=== PATIENT | female | born 1950 | race Caucasian/White ===

== ENCOUNTER 2016-11-18 08:22 | Outpatient (CLI) | payer MEDICARE ==
[~2016-11-18] VITALS: Ht 154.9 cm; Wt 71.4 kg
--- NOTE | ~2016-11-18 | HEMODYNAMI ---
PATIENT:BILL ESPINO MEDICAL RECORD: [id number] : 48 LOCATION:[facility] ADMISSION DATE: 11/18/16 Generatedon:11/18/201610:42 Patient name: BILL ESPINO Patient #: [id number] SSN: : 1950 Date of study: 11/18/2016 Page: Of Hemodynamic Procedure Report Patient Data Patient Demographics Procedure consent was obtained First Name: BILL Gender: Female Last Name: SRINIVAS : 1950 [facility] Initial: K Age: 65 year(s) Patient #: [id number] Race: Additional ID: [id number] Contact details Address: [facility] [address] State: [place] City: [place] Zip code: [address] Past Medical History Allergies Allergen Reaction Date Comments Reported Other allergy 05/03/2015 Hydrocodone, Reglan Other allergy 11/18/2016 HYDROCODONE, METOCLOPRAMIDE Admission Admission Data Admission Date: 11/18/2016 Admission Time: 8:22 Lab Results Lab Result Date: 11/18/2016 Lab Result Time: 0:00 Biochemistry Name Units Result Min Max BUN mg/dl 15 --(--*-)-- 7 18 Creatinine mg/dl 0.9 --(-*--)-- 0.6 1.3 CBC Name Units Result Min Max Hemoglobin g/dl 13.6 --(*---)-- 13.5 17.5 Procedure Procedure Types Cath Procedure Diagnostic Procedure LHC LHC w/Coronaries Miscellaneous Procedures Moderate Sedation up to 15 minutes Peripheral Cath Diagnostic Procedure Cath Peripheral Four Vessel Arteriogram Procedure Description Procedure Date Procedure Date: 11/18/2016 Procedure Start Time: 10:29 Procedure End Time: 10:37 Procedure Staff Name Function Augustus Del Real MD Performing Physician Binu Marcos RT Scrub Enedelia Faulkner RN Nurse Wayne Choe RT Monitor Procedure Data Cath Procedure Fluoroscopy Diagnostic fluoroscopy Total fluoroscopy Time: 1.9 time: 1.9 min min Diagnostic fluoroscopy Total fluoroscopy dose: dose: 119.04 mGy 119.04 mGy Contrast Material Contrast Material Type Amount (ml) Isovue 300 92 Entry Location Entry Primary Successful Side Size Upsize Upsize Entry Closure Succes sful Closure Location (Fr) 1 (Fr) 2 (Fr) Remarks Device Remarks Femoral Right 5 Fr Exoseal artery Diagnostic catheters Device Type Used For End Catheter Placement Cordis 5Fr Pigtail LV Angiography Catheter (MP) Cordis 5Fr JL 4.0 Left Coronary Catheter (MP) Angiography Cordis 5Fr 3DRC Catheter Right Coronary (MP) Angiography Procedure Complications No complications Procedure Medications Medication Administration Route Dosage Oxygen NC 2 l/min Heparin Flush Bag added to field 2 bags (1000units/500ml NS) Lidocaine 2% added to field 20 Versed I.V. 1 mg Fentanyl I.V. 50 mcg Versed I.V. 1 mg Fentanyl I.V. 50 mcg Versed I.V. 1 mg Fentanyl I.V. 50 mcg Hemodynamics Rest HGB: 13.6 (g/dl) Heart Rate: 63 (bpm) Snapshots Pre Cath Intra NCS Post Cath Vital Signs Time Heart Resp SPO2 NIBP (mmHg) Rhythm Pain Sedation Rate (ipm) (%) Status Level (bpm) 10:12:26 63 22 99 174/76(137) NSR 0 (11) 10(A) , No pain 10:16:48 68 19 99 142/80(123) NSR 0 (11) 10(A) , No pain 10:21:02 66 20 100 117/66(89) NSR 0 (11) 10(A) , No pain 10:25:13 57 16 99 90/50(72) NSR 0 (11) 10(A) , No pain 10:29:23 57 16 99 95/54(73) NSR 0 (11) 9(A) , No pain 10:33:35 60 16 100 95/55(77) NSR 0 (11) 9(A) , No pain 10:37:45 63 16 98 98/57(74) NSR 0 (11) 9(A) , No pain Medications Time Medication Route Dose Verified Delivered Reason Notes Effec tiveness by by 10:11:23 Oxygen NC 2 Augustus Enedelia Per l/min Nasima Faulkner RN physician 10:11:32 Heparin Flush added 2 Augustus Coffman used for Bag to bags Nasima Del Real MD procedure (1000units/500ml field NS) 10:11:40 Lidocaine 2% added 20ml Augustus Coffman used for to vial Nasima Del Real MD procedure field 10:22:00 Versed I.V. 1 mg Augustus Enedelia for Nasima Faulkner RN sedation 10:22:21 Fentanyl I.V. 50 Augustus Enedelia for mcg Nasima Faulkner RN sedation 10:24:20 Versed I.V. 1 mg Augustus Enedelia for Nasima Faulkner RN sedation 10:24:45 Fentanyl I.V. 50 Augustus Enedelia for mcg Nasima Faulkner RN sedation 10:26:37 Versed I.V. 1 mg Augustus Enedelia for Nasima Faulkner RN sedation 10:26:42 Fentanyl I.V. 50 Augustus Enedelia for mcg Nasima Faulkner RN sedation Procedure Log Time Note 9:24:52 ACC Patient presents with Stable Angina CCS Anginal Class 2--Slight limitation of ordinary activity. 9:24:56 Diagnostic Cath status Elective 9:55:23 Binu FREEMAN(R) sent for patient. Start room use. 10:06:33 Time tracking: Regular hours 10:06:36 Plan of Care:Hemodynamics will remain stable., Cardiac rhythm will remain stable., Comfort level will be maintained., Respiratory function will remain adequate., Patient/ family verbilizes understanding of procedure., Procedure tolerated without complication., Recovers from procedure without complications.. 10:06:40 Patient received from Pre/Post Procedure Room to CCL 3 Alert and oriented. Tansferred to table in Supine position. 10:06:42 Warm blankets applied, and adilia hugger turned on for patient comfort. 10:06:42 Correct patient and procedure confirmed by team. 10:06:43 ECG and BP/O2 sat monitors applied to patient. 10:06:45 Signed procedure consent form obtained from patient. 10:11:01 Vital chart was started 10:11:23 Oxygen 2 l/min NC was administered by Enedelia Faulkner RN; Per physician; 10:11:32 Heparin Flush Bag (1000units/500ml NS) 2 bags added to field was administered by Augustus Del Real MD; used for procedure; 10:11:40 Lidocaine 2% 20ml vial added to field was administered by Augustus Del Real MD; used for procedure; 10:19:48 Baseline sample Acquired. 10:19:50 Rhythm: sinus rhythm 10::51 Full Disclosure recording started 10:20:03 H&P Date Dictated: 11/16/2016 Within 30 days and on chart., H&P Addendum completed by physician on day of procedure. (MUST COMPLETE FOR ALL OUTPATIENTS). 10:20:03 Pre-procedure instructions explained to patient. 10:20:04 Pre-op teaching completed and patient verbalized understanding. 10:20:05 Family in patients room. 10:20:06 Patient NPO since Midnight. 10:20:36 Patient allergic to Other allergyHYDROCODONE, METOCLOPRAMIDE 10:20:38 Is the patient allergic to Iodine/contrast media? No. 10:20:42 Is patient on blood thinner?Yes 10:20:45 ACC The patient was administered the following blood thiners within the last 24 hours: ACCPlavix 10:20:47 Patient diabetic? No. 10:20:47 ----Pre-sedation anethsthesia assessment.---- 10:20:49 Previous problem with sedation/anesthesia? No ? 10:20:50 Snore? Yes 10:20:51 Sleep apnea? Yes 10:20:53 Deviated septum? No 10:20:54 Opens mouth fully? Yes 10:20:55 Sticks out tongue? Yes 10:20:59 Airway obstruction? Yes COPD 10:21:03 Dentures? Yes OUT 10:21:06 Pre procedure: right dorsailis pedis pulse 1+ Palpable, but thready & weak; easily obliterated 10:21:16 Patient pain scale 0/10 ?. 10:21:21 IV patent on arrival in left antecubital with 0.9% NaCl at 10ml/hr. 10:21:41 Lab Result : BUN 15 mg/dl 10:21:41 Lab Result : Creatinine 0.9 mg/dl 10:21:41 Lab Result : Hemoglobin 13.6 g/dl 10:21:44 Lab results completed and on chart. 10:21:46 Right groin area was prepped with chlora-prep and draped in sterile fashion 10:21:47 Alarms reviewed by Kimmie Abdi 10::47 Sharps counted by scrub and verified by R.N. 10::48 --------ALL STOP TIME OUT------ 10::48 Final Timeout: patient, procedure, and site verified with staff and physician. All members of the team are in agreement. 10:21:50 Right groin site verified by team. 10::53 Physical assessment completed. ASA score P 2 - A patient with mild systemic disease as per Augustus Del Real MD. 10::57 Sedation plan: IV Moderate Sedation Versed, Fentanyl 10:22:00 Versed 1 mg I.V. was administered by Enedelia Faulkner RN; for sedation; 10::21 Fentanyl 50 mcg I.V. was administered by Enedelia Fualkner RN; for sedation; ::57 Use device set Femoral Dx 10:22:58 Acist Syringe opened to sterile field. 10:22:59 Bag Decanter opened to sterile field. 10:22:59 Medline Cath Pack opened to sterile field. 10:22:59 Terumo 5Fr Moore Sheath opened to sterile field. 10:23:00 St Gunner 260cm J .035 wire opened to sterile field. 10:23:01 Acist Hand Control opened to sterile field. 10:23:01 Acist Manifold opened to sterile field. 10:23:02 Diagnostic Infinity 5Fr Multipack catheter opened to sterile field. 10:23:02 Tegaderm 4 x 4 opened to sterile field. 10:23:27 Procedure type changed to Cath procedure, Diagnostic procedure, LHC, LHC w/Coronaries, Miscellaneous Procedures, Moderate Sedation up to 15 minutes, Peripheral Cath Diagnostic Procedure, Cath Peripheral, Four Vessel Arteriogram 10:24:20 Versed 1 mg I.V. was administered by Enedelia Faulkner RN; for sedation; 10:24:45 Fentanyl 50 mcg I.V. was administered by Enedelia Faulkner RN; for sedation; 10:26:37 Versed 1 mg I.V. was administered by Enedelia Faulkner RN; for sedation; 10:26:38 Zero performed for pressure channel P1 10::42 Fentanyl 50 mcg I.V. was administered by Enedelia Faulkner RN; for sedation; 10:29:13 Procedure started. 10:29:25 Local anesthetic to right femoral artery with Lidocaine 2% by Augustus Del Real MD.INITIAL ACCESS ONLY 10:29:32 A 5 Fr sheath was inserted into the Right Femoral artery 10:29:38 A Cordis 5Fr Pigtail Catheter (MP) was advanced over the wire and used for LV Angiography. 10:30:33 LV angiography performed. 10:30:35 LV gram done using ROMERO 10:31:06 Injector settings: Ml/sec: 10, Volume: 20, 10:31:12 EF : 55 % 10:31:14 Catheter removed. 10:31:20 A Cordis 5Fr JL 4.0 Catheter (MP) was advanced over the wire and used for Left Coronary Angiography. 10:32:23 LCA angiography performed. 10:32:23 Catheter removed. 10:32:29 A Cordis 5Fr 3DRC Catheter (MP) was advanced over the wire and used for Right Coronary Angiography. 10:32:32 RCA angiography performed. 10:33:17 Left carotid angiography performed. 10:33:18 Left subclavian angiography performed 10:33:19 Right carotid angiography performed. 10:33:20 Right subclavian angiography performed 10:34:59 Catheter removed. 10:35:04 Contrast amount:Isovue 300 92ml. 10:35:15 Sheath removed intact; hemostasis achieved with Exoseal to the Right Femoral artery. 10:35:16 Procedure ended.(Physican Out) 10:35:28 Fluoroscopy time 01.90 minutes. 10:35:52 Fluoroscopy dose: 119.04 mGy 10:35:52 Flurop Dose total: 119.04 10:35:54 Sharps counted by scrub and verified by R.N. 10:35:54 Insertion/operative site no bleeding no hematoma. 10:35:57 Post-op/insertion site Right Femoral artery dressed using a 4 x 4 and Tegaderm. 10:35:59 Post right femoral artery:stable 10:36:00 Post Procedure Pulses reassessed and unchanged 10:36:08 Post procedure: right dorsailis pedis pulse 1+ Palpable, but thready & weak; easily obliterated. 10:36:10 Post procedure rhythm: sinus rhythm 10:36:12 Post procedure instruction explained to patient.Patient verbalizes understanding. 10:36:32 Procedure and supply charges have been captured, reviewed, submitted and are correct. 10:36:44 Cordis 5Fr Exoseal opened to sterile field. 10:36:59 Procedure Complication : No complications 10:37:01 See physician's report for complete and final results. 10:37:02 Report given to Pre/Post Procedure Room. 10:37:04 Vital chart was stopped 10:37:07 Patient transfered to Pre/Post Procedure Room with Stretcher. 10:37:09 Procedure ended. 10:37:09 Full Disclosure recording stopped 10:37:11 End room use (Document Last) Device Usage Item Name Manufacture Quantity Catalog Hospital Part Current Minimal Lo t# / Number Charge Number Stock Stock Serial# Code Acist Acist 1 [id number] 086068 817630 [id number] 20 Syringe Medical [employer] Inc Bag Microtek 1 2002S 733324 35029 968115 5 Decanter Medical Inc. Medline Cardinal 1 [id number] 457991 55028 782936 5 Cath Pack Health Terumo 5Fr Terumo 1 [id number] 298999 388745 124556 [address] Gunner 1 738689 202269 526574 581906 30 260cm J .035 wire Acist Hand Acist 1 81935 167983 391653 652819 5 Control Medical Systems Inc Acist Acist 1 48546 478337 515805 239745 5 Manifold Medical Systems Inc Diagnostic Cardinal 1 [id number] 413601 73075 875347 30 Infinity Health 5Fr Multipack catheter Tegaderm 4 3M 1 1626W 341184 580060 169206 5 x 4 Cordis 5Fr Cardinal 1 522174 5 Pigtail Health Catheter (MP) Cordis 5Fr Cardinal 1 371450 5 JL 4.0 Health Catheter (MP) Cordis 5Fr Cardinal 1 991577 5 3DRC Health Catheter (MP) Cordis 5Fr Cardinal 1 EX500 306552 144405 742088 10 Exoseal Health Signature Audit [place] Stage Time Signature Unsigned Intra-Procedure 11/18/2016 Wayne Choe 10:42:04 AM RT(R) Signatures Monitor : Wayne Choe RT Signature : Date : Time : [facility] [address] [place] [address]
[~2016-11-18 08:22] MED LIST: AMBIEN10 MG PO; ASPIRIN 81 MG E81 MG PO; CELEXA20 MG PO; NEURONTIN 300300 MG PO; NIASPAN500 MG PO; NITROSTAT0.4 MG SL; PLAVIX75 MG PO; PRAVACHOL20 MG PO; TOPROL XL25 MG PO; [UNRECOGNIZED DRUG - REMARK] IH
[2016-11-18 08:54] VITALS: BP 165/67; Ht 154.9 cm; Wt 71.4 kg
[2016-11-18 09:28] LABS: BASOPHILS 0.3 % (0.0-2.0); EOSINOPHILS 3.4 % (0-7); HEMATOCRIT 40.9 % (36.0-48.0); HEMOGLOBIN 13.6 g/dL (12-16); IMMATURE GRANULOCYTES 0.3 % (0-5); MCH 30.7 pg (26.0-34.0); MCHC 33.3 g/dL (31.0-37.0); MCV 92.3 fL (80.0-100.0); MEAN PLATELET VOLUME 9.5 fL (7.4-10.4); MONOCYTES 12.4 % (2-11); NEUTROPHILS 58.6 % (40-80); PLATELET COUNT 157 10x3/uL (130-400); RBC 4.43 10x6/uL (4.00-5.40); RDW 13.6 % (11.5-14.5); WBC 5.9 10x3/uL (4.8-10.8)
[2016-11-18 09:43] LABS: ANION GAP 14.3 mmol/L (8-16); CALCIUM 8.5 mg/dL (8.5-10.1); CARBON DIOXIDE 23.9 mmol/L (21.0-32.0); CREATININE - SERUM 0.9 mg/dL (0.6-1.3); POTASSIUM - SERUM 4.2 mmol/L (3.5-5.1)
--- NOTE | 2016-11-18 11:58 | NUR ---
1115-RIGHT GROIN CDI, NO HEMATOMA OR BLEEDING, SOFT TO TOUCH 1145-NO CHANGES IN RIGHT GROIN, RESTING WITH FAMILY AT SIDE
--- NOTE | 2016-11-27 10:19 | OP ---
PATIENT NAME: BILL ESPINO MEDICAL RECORD: [id number] :48 LOCATION:D.CAT ADMISSION DATE: SURGEON: MATT STEWART MD DATE OF OPERATION: 11/18/2016 PROCEDURES: 1. Left heart catheterization. 2. Selective coronary angiography. 3. Left ventriculogram. PROCEDURE IN DETAIL: After informed consent was obtained and after detailed explanation of risks, benefits as well as alternative therapies, the patient elected to proceed with angiogram and heart catheterization. The right femoral area was prepped and draped in normal sterile fashion. The right femoral artery was cannulated via modified Seldinger technique with placement of 5-Dominican sheath. All catheters exchanged through this sheath. FINDINGS: The left ventriculogram was performed in the standard 30-degree ROMERO view, reveals good cardiac wall motion throughout all segments. Overall ejection fraction estimated 60%. SELECTIVE CORONARY ANGIOGRAPHY: 1. Left main showed no significant angiographic disease. 2. Left anterior descending has a previously placed stent with no significant restenosis. No disease elsewise throughout the LAD or its branches. 3. Left circumflex shows moderate irregularities, but no flow-limiting stenosis. 4. Right coronary has previously placed stents with no significant restenosis. No disease elsewise throughout the RCA or its branches. OVERALL IMPRESSION: Wide patency of all the previously placed stents, no new disease elsewise, preserved left ventricular function. Continue medical management of the coronary artery disease and cardiac risk factors. TRANSINT:[id number] Voice Confirmation ID: [id number] DOCUMENT ID: [id number] MATT STEWART MD at 1019 CC: [id number] DICTATION DATE: 11/18/16 1043 MACHINE MOLDER: 11/18/16 1128 DEP CLI 11/18/16 [place] [id number]
--- NOTE | 2016-11-27 10:19 | OP ---
PATIENT NAME: BILL ESPINO MEDICAL RECORD: [id number] :48 LOCATION:D.CAT ADMISSION DATE: SURGEON: MATT STEWART MD DATE OF OPERATION: 11/18/2016 PROCEDURES: Four-vessel carotid and vertebral angiography. INDICATIONS: Carotid vascular disease, left arm numbness and weakness. PROCEDURE IN DETAIL: After informed consent was obtained and after a detailed explanation of the risks, benefits as well as alternative therapies, the patient elected to proceed with angiogram. The right femoral area had a preexisting sheath from coronary angiography. All catheters exchanged through this sheath. FINDINGS: There was subselection of each subclavian as well as the left carotid. RIGHT SIDE: The common internal and external carotids have mild plaquing, none greater than 20%, no flow-limiting stenosis. Vertebral arteries are devoid of disease. LEFT SYSTEM: The common internal and external carotids have mild plaquing, none greater than 20%, no significant stenosis. Subclavian has a previously placed stent. The stent is widely patent. The vertebral artery is widely patent and on the left side as well. OVERALL IMPRESSION: Wide patency of the previously placed subclavian stent. No disease elsewise. Continue medical management of the carotid vascular disease and carotid risk factors. TRANSINT:[id number] Voice Confirmation ID: [id number] DOCUMENT ID: [id number] MATT STEWART MD at 1019 CC: [id number] DICTATION DATE: 11/18/16 1043 ACCOUNTING TUTOR: 11/18/16 1129 DEP CLI 11/18/16 [place] [id number] [place] [address]
== END 2016-11-18 12:45 | disposition home or self-care (01) ==
LOC: D.CATH 08:22
PROVIDERS: Internal Medicine Interventional Cardiology
DX: I25.119 Atherosclerotic heart disease of native coronary artery with unspecified angina pectoris (principal); Z95.5 Presence of coronary angioplasty implant and graft; I65.23 Occlusion and stenosis of bilateral carotid arteries

== ENCOUNTER 2018-04-11 07:20 | Outpatient (CLI) | payer MEDICARE ==
[~2018-04-11] VITALS: Ht 154.9 cm; Wt 70.9 kg
--- NOTE | ~2018-04-11 | OP ---
PATIENT NAME: BILL ESPINO MEDICAL RECORD: [id number] :48 LOCATION:D.CAT ADMISSION DATE: SURGEON: MATT STEWART MD DATE OF OPERATION: 04/11/2018 PROCEDURES: 1. PTCA stent RCA. 2. Intravascular ultrasound. 3. Left heart catheterization. 4. Selective coronary angiography. 5. Left ventriculogram. INDICATION: Angina and coronary artery disease. PROCEDURE IN DETAIL: After informed consent was obtained and after a detailed description of risks, benefits as well as alternative therapies, the patient elected to proceed with angiogram and angioplasty. The right femoral area was prepped and draped in normal sterile fashion. The right femoral artery cannulated via modified Seldinger technique with placement of 6-[place] sheath. All catheters exchanged through this sheath. FINDINGS: The left ventriculogram was performed in standard 30-degree ROMERO view, reveals good cardiac wall motion throughout all segments. Overall ejection fraction estimated 60%. SELECTIVE CORONARY ANGIOGRAPHY: 1. Left main showed no significant angiographic disease. 2. Left anterior descending has previously placed stent with greater than 70% in-stent restenosis in the mid vessel. 3. Left circumflex has moderate irregularities, but no flow-limiting stenosis. 4. The right coronary artery has previously placed stents, these are widely patent confirmed by intravascular ultrasound with no significant in-stent restenosis; however, the PDA has a new 80% stenosis. PTCA STENT OF THE RIGHT PDA: Stent used was a 2.25 x 8 mm [place]. Result was 0% residual stenosis. OVERALL IMPRESSION: Successful PTCA stent of the RCA PDA going from 80% initial stenosis to 0% residual. TRANSINT:[id number] Voice Confirmation ID: [id number] DOCUMENT ID: [id number] MATT STEWART MD at 1806 CC: [id number] DICTATION DATE: 04/11/18 1006 FARM OR RANCH ANIMAL CARETAKER: 04/11/18 1221 DEP CLI 04/12/18 [place] [id number] [place] [address]
--- NOTE | ~2018-04-11 | OP ---
PATIENT NAME: BILL ESPINO MEDICAL RECORD: [id number] :48 LOCATION:D.CAT ADMISSION DATE: SURGEON: MATT STEWART MD DATE OF OPERATION: 04/12/2018 PROCEDURES: 1. Laser atherectomy LAD for in-stent restenosis. 2. Selective coronary angiography. DESCRIPTION OF PROCEDURE: After informed consent was obtained and after a detailed description of risks, benefits as well as alternative therapies, the patient elected to proceed with angiogram and laser atherectomy. The right femoral area was prepped and draped in normal sterile fashion. Right femoral artery was cannulated via modified Seldinger technique with placement of 6-Welsh sheath. All catheters exchanged through this sheath. FINDINGS: The left anterior descending has a 70% in-stent restenosis in the mid vessel. This was addressed with 0.9 laser catheter at 80/40, 4 passes were made. Result was 0% residual stenosis. OVERALL IMPRESSION: Successful laser atherectomy of the left anterior descending for in-stent restenosis going from 70% initial stenosis to 0% residual. TRANSINT:[id number] Voice Confirmation ID: [id number] DOCUMENT ID: [id number] MATT STEWART MD at 1806 CC: [id number] DICTATION DATE: 04/12/18 1127 DETAIL SUPERVISOR: 04/12/18 1212 DEP CLI 04/12/[address] [address]
--- NOTE | ~2018-04-11 | DS ---
PATIENT:BILL ESPINO :48 MEDICAL RECORD: [id number] DISCHARGE SUMMARY ADMISSION DATE: 04/11/18 DISCHARGE DATE: 04/12/18 DATE OF DISCHARGE: 04/12/2018. DIAGNOSES: 1. Angina, unstable. 2. Coronary artery disease. 3. Percutaneous transluminal coronary angioplasty stent right coronary artery, laser atherectomy left anterior descending this admission. HISTORY: Ms. Espino presents with anginal symptomatology, found to have significant disease of the RCA and LAD, underwent successful PTCA stent of the RCA as well as laser atherectomy of the LAD for in-stent restenosis of the LAD, had an uneventful postop course and was discharged home with the addition of aspirin and Plavix to her medical regimen. Follow up with [facility] in 1 month. TRANSINT:[id number] Voice Confirmation ID: [id number] DOCUMENT ID: [id number] MATT STEWART MD at 1806 CC: [id number] DICTATION DATE: 04/12/18 1126 END PACKER: 04/12/18 1358 DEP CLI 04/12/18 [place] [id number] [place] [address]
--- NOTE | ~2018-04-11 | HEMODYNAMI ---
PATIENT:BILL ESPINO MEDICAL RECORD: [id number] : 48 LOCATION:[facility] ADMISSION DATE: 04/11/18 Generatedon:04/11/201810:03 Patient name: BILL ESPINO Patient #: [id number] SSN: : 1950 Date of study: 04/11/2018 Page: Of Hemodynamic Procedure Report Patient Data Patient Demographics Procedure consent was obtained First Name: BILL Gender: Female Last Name: SRINIVAS : 1950 [facility] Initial: K Age: 67 year(s) Patient #: [id number] Race: Additional ID: [id number] Contact details Address: [facility] [address] State: [place] City: [place] Zip code: [address] Past Medical History Allergies Allergen Reaction Date Comments Reported Other allergy 05/03/2015 Hydrocodone, Reglan Other allergy 11/18/2016 HYDROCODONE, METOCLOPRAMIDE Admission Admission Data Admission Date: 04/11/2018 Admission Time: 7:20 Procedure Procedure Types Cath Procedure Diagnostic Procedure LHC [facility] w/Coronaries FFR/IVUS Intra-Coronary IVUS Initial Sedation Charges Moderate Sedation up to 15 minutes PCI Procedure Coronary Stent Coronary Stent Initial Procedure Description Procedure Date Procedure Date: 04/11/2018 Procedure Start Time: 9:47 Procedure End Time: 10:02 Procedure Staff Name Function Briana Dockery RT Scrub Stevan Nair RN Nurse Augustus Del Real MD Performing Physician Santa Carrillo RT Monitor Procedure Data Cath Procedure Fluoroscopy Diagnostic fluoroscopy Total fluoroscopy Time: 4.1 time: 4.1 min min Diagnostic fluoroscopy Total fluoroscopy dose: 796 dose: 796 mGy mGy Contrast Material Contrast Material Type Amount (ml) Isovue 300 106 Entry Location Entry Primary Successful Side Size Upsize Upsize Entry Closure Succes sful Closure Location (Fr) 1 (Fr) 2 (Fr) Remarks Device Remarks Femoral Right 5 Fr 6 Fr Exoseal artery Short Estimated blood loss: 5 ml Diagnostic catheters Device Type Used For End Catheter Placement MULTIPACK Pigtail 5 Fr LV Angiography catheter MULTIPACK JL 4.0 5Fr Left Coronary catheter Angiography MULTIPACK 3DRC 5Fr Right Coronary catheter Angiography Procedure Complications No complications Procedure Medications Medication Administration Route Dosage Oxygen etCO2 Nasal cannula 2 l/min Lidocaine 2% added to field 20 Heparin Flush Bag added to field 2 bags (1000units/500ml NS) 0.9% NaCl I.V. 100 ml/hr Versed I.V. 1 mg Fentanyl I.V. 50 mcg Versed I.V. 1 mg Fentanyl I.V. 50 mcg Versed I.V. 1 mg Fentanyl I.V. 50 mcg Heparin Bolus I.V. 5000 units Hemodynamics Rest Heart Rate: 66 (bpm) Snapshots Pre Cath Intra NCS Post Cath Vital Signs Time Heart Resp SPO2 etCO2 NIBP Rhythm Pain Sedation Rate (ipm) (%) (mmHg) (mmHg) Status Level (bpm) 9:32:51 66 22 96 30.7 146/64(0) NSR 0 (11) 10(A) , No pain 9:37:21 61 16 96 30.7 113/73(0) NSR 0 (11) 10(A) , No pain 9:42:19 60 19 95 43.5 116/71(0) NSR 0 (11) 9(A) , No pain 9:47:49 62 15 95 48 117/54(0) NSR 0 (11) 9(A) , No pain 9:54:20 64 19 95 46.5 116/65(0) NSR 0 (11) 9(A) , No pain 9:57:51 61 22 94 47.3 116/63(0) NSR 0 (11) 9(A) , No pain 10:01:22 67 23 95 45.8 121/65(0) NSR 0 (11) 10(A) , No pain Medications Time Medication Route Dose Verified Delivered Reason Notes Effectiveness by by 9:36:04 Oxygen etCO2 2 Augustus Calles used for Nasal l/min Nasima Nair RN procedure cannula 9:36:10 Lidocaine 2% added 20ml Augusuts oCffman for local to vial Nasima Del Real MD anesthetic field 9:36:16 Heparin Flush added 2 Augustus Coffman used for Bag to bags Nasima Del Real MD procedure (1000units/500ml field NS) 9:36:25 0.9% NaCl I.V. 100 Augustus Rafitaie Per physician ml/hr Nasima Nair RN 9:37:25 Versed I.V. 1 mg Augustus Ellerie for sedation Nasima Nair RN 9:37:30 Fentanyl I.V. 50 Augustus Buffie for sedation mcg Nasima Nair RN 9:42:13 Fentanyl I.V. 50 Augustus Ellerie for sedation mcg Nasima Nair RN 9:42:50 Versed I.V. 1 mg Augustus Buffie for sedation Nasima Nair RN 9:46:23 Versed I.V. 1 mg Augustus Buffie for sedation Nasima Nair RN 9:46:27 Fentanyl I.V. 50 Augustus Ellerie for sedation mcg Nasima Nair RN 9:50:50 Heparin Bolus I.V. 5000 Augustus Buffie for verifi ed units Nasima Nair RN anticoagulation with dr del real Procedure Log Time Note 9:18:41 Diagnostic Cath Status : Elective 9:18:59 Stevan Nair RN sent for patient. Start room use. 9:19:00 Time tracking: Regular hours (M-F 7:00 - 5:00) 9:19:06 Plan of Care:Hemodynamics will remain stable., Cardiac rhythm will remain stable., Comfort level will be maintained., Respiratory function will remain adequate., Patient/ family verbilizes understanding of procedure., Procedure tolerated without complication., Recovers from procedure without complications.. 9:23:57 Patient received from Pre/Post Procedure Room to CCL 2 Alert and oriented. Tansferred to table in Supine position. 9:23:59 Correct patient and procedure confirmed by team. 9:23:59 Warm blankets applied, and adilia hugger turned on for patient comfort. 9:24:01 Signed procedure consent form obtained from patient. 9:24:02 ECG and BP/O2 sat monitors applied to patient. 9:32:30 Vital chart was started 9:32:31 Baseline sample Acquired. 9:32:38 Rhythm: sinus rhythm 9:32:40 Full Disclosure recording started 9:32:45 H&P Date Dictated: 04/11/2018 Within 30 days and on chart., H&P Addendum completed by physician on day of procedure. (MUST COMPLETE FOR ALL OUTPATIENTS). 9:32:46 Pre-op teaching completed and patient verbalized understanding. 9:32:46 Pre-procedure instructions explained to patient. 9:32:48 Family in waiting room. 9:32:51 Patient NPO since Midnight. 9:33:10 Is the patient allergic to Iodine/contrast media? No. 9:33:12 Was the patient premedicated? No 9:33:13 Is patient on blood thinner?Yes 9:33:16 ACC The patient was administered the following blood thiners within the last 24 hours: ACCPlavix 9:33:19 Patient diabetic? No. 9:33:22 Previous problem with sedation/anesthesia? No ? 9:33:24 Snore? Yes 9:33:25 Sleep apnea? Yes 9:33:26 Deviated septum? No 9:33:27 Opens mouth fully? Yes 9:33:28 Sticks out tongue? Yes 9:33:30 Airway obstruction? No ? 9:33:35 Dentures? No ? 9:33:40 Pre procedure: right dorsailis pedis pulse 1+ Palpable, but thready & weak; easily obliterated 9:33:42 Pre procedure: left dorsailis pedis pulse 1+ Palpable, but thready & weak; easily obliterated 9:33:44 Patient pain scale 0/10 ?. 9:34:12 IV patent on arrival in left antecubital with 0.9% NaCl at [facility]. 9:34:18 Lab results completed and on chart. 9:34:25 Right groin area was prepped with chlora-prep and draped in sterile fashion 9:34:26 Sharps counted by scrub and verified by R.N. 9:34:26 Alarms reviewed by R. N. 9:34:29 Final Timeout: patient, procedure, and site verified with staff and physician. All members of the team are in agreement. 9:34:29 --------ALL STOP TIME OUT------ 9:34:29 Physician arrived 9:34:37 Right groin site verified by team. 9:34:40 Physical assessment completed. ASA score P 2 - A patient with mild systemic disease as per Augustus Del Real MD. 9:34:43 Sedation plan: IV Moderate Sedation Medication:Versed, Fentanyl 9:34:51 Use device set Femoral Dx 9:34:52 ACIST Syringe (37639) opened to sterile field. 9:34:53 Medline Cath Pack ([id number]) opened to sterile field. 9:34:53 Bag Decanter (2001S) opened to sterile field. 9:34:54 DIAGNOSTIC WIRE .035 260cm J wire (519332) opened to sterile field. 9:34:55 DIAGNOSTIC Multipack 5Fr catheter set ([id number]) opened to sterile field. 9:34:55 ACIST Manifold (29247) opened to sterile field. 9:34:55 ACIST Hand Control (15203) opened to sterile field. 9:34:56 Tegaderm 4 x 4 (1626W) opened to sterile field. 9:34:59 SHEATH Prelude 5Fr 0.035 ([id number]-8W-41-035) opened to sterile field. 9:36:04 Oxygen 2 l/min etCO2 Nasal cannula was administered by Stevan Nair RN; used for procedure; 9:36:10 Lidocaine 2% 20ml vial added to field was administered by Augustus Del Real MD; for local anesthetic; 9:36:16 Heparin Flush Bag (1000units/500ml NS) 2 bags added to field was administered by Augustus Del Real MD; used for procedure; 9:36:25 0.9% NaCl 100 ml/hr I.V. was administered by Stevan Nair RN; Per physician; 9:37:25 Versed 1 mg I.V. was administered by Stevan Nair RN; for sedation; 9:37:30 Fentanyl 50 mcg I.V. was administered by Stevan Nair RN; for sedation; 9:39:25 Zero performed for pressure channel P1 9:40:31 Full Disclosure recording stopped 9:41:44 Vital chart was started 9:42:13 Fentanyl 50 mcg I.V. was administered by Stevan Nair RN; for sedation; 9:42:50 Versed 1 mg I.V. was administered by Stevan Nair RN; for sedation; 9:44:35 Procedure started. 9:45:52 A 5 Fr sheath was inserted into the Right Femoral artery 9:46:23 Versed 1 mg I.V. was administered by Stevan Nair RN; for sedation; 9:46:27 Fentanyl 50 mcg I.V. was administered by Stevan Nair RN; for sedation; 9:47:02 Vital chart was started 9:47:35 Full Disclosure recording started 9:47:44 Local anesthetic to right femoral artery with Lidocaine 2% by Briana Dockery RT(R).INITIAL ACCESS ONLY 9:48:09 Use device set Femoral Dx 9:48:17 A MULTIPACK Pigtail 5 Fr catheter was advanced over the wire and used for LV Angiography. 9:48:24 LV hemodynamics recorded. 9:48:25 LV gram done using ROMERO 9:48:28 Injector settings: Ml/sec: 5, Volume: 15, 9:48:46 EF : 60 % 9:48:47 Catheter removed. 9:48:54 A MULTIPACK JL 4.0 5Fr catheter was advanced over the wire and used for Left Coronary Angiography. 9:48:59 LCA angiography performed. 9:49:02 Injector settings: Ml/sec: 3, Volume: 6, 9:49:04 Catheter removed. 9:49:09 A MULTIPACK 3DRC 5Fr catheter was advanced over the wire and used for Right Coronary Angiography. 9:49:14 RCA angiography performed. 9:49:16 Injector settings: Ml/sec: 3, Volume: 6, 9:49:20 Catheter removed. 9:49:21 Proceeding to intervention. 9:49:41 SHEATH 6Fr Prelude ([id number]) opened to sterile field. 9:49:41 INFLATOR Merit BasixCompak (MV8208) opened to sterile field. 9:49:43 CHOICE PT Extra Support 182cm wire ([id number]) opened to sterile field. 9:49:44 [place] IVUS Catheter ([id number]) opened to sterile field. 9:49:57 Sheath upsized to a 6 Fr Short. 9:50:35 GUIDE 6FR AR 1.0 SH catheter ([id number]) opened to sterile field. 9:50:42 6 Fr ar 1 sh guide catheter was inserted over the wire 9:50:47 choice pt wire advanced. 9:50:48 Wire advanced across lesion. 9:50:50 short choice pt exchanged for long 9:50:50 CHOICE PT Extra Support J 300cm guide wire ([id number]) opened to sterile field. 9:50:50 Heparin Bolus 5000 units I.V. was administered by Stevna Nair RN; for anticoagulation; verified with dr del real 9:50:56 IVUS catheter advanced over wire. 9:55:19 IVUS pass to RCA lesion performed. 9:55:24 IVUS catheter removed over wire. 9:58:19 Place stent Inflation Number: 1 A ALMAS OTW 2.25 x 08 stent ([id number]) was prepped and advanced across the R PDA. The stent was deployed at 13 CHANDA for 0:10 (min:sec). 9:59:22 Stent catheter was removed intact over wire. 9:59:24 Wire removed. 9:59:25 Guide catheter removed. 9:59:45 EXOSEAL 6Fr (EX600) opened to sterile field. 10:00:56 Sheath removed intact; hemostasis achieved with Exoseal to the Right Femoral artery. 10:00:58 Procedure ended.(Physican Out) 10:01:06 Fluoroscopy time 04.10 minutes. 10:01:10 Fluoroscopy dose: 796 mGy 10:01:10 Flurop Dose total: 796 10:01:26 Contrast amount:Isovue 300 106ml. 10:01:39 Sharps counted by scrub and verified by R.N. 10:01:42 Insertion/operative site no bleeding no hematoma. 10:01:45 Post-op/insertion site Right Femoral artery dressed using a 4 x 4 and Tegaderm. 10:01:48 Post procedure rhythm: unchanged. 10:01:50 Estimated blood loss: 5 ml 10:01:52 Post procedure instruction explained to patient.Patient verbalizes understanding. 10:01:52 Patient needs reinforcement of post procedure teaching. 10:02:07 Procedure type changed to Cath procedure, Diagnostic procedure, LHC, [facility] w/Coronaries, FFR/IVUS, Intra-Coronary IVUS Initial, Sedation Charges, Moderate Sedation up to 15 minutes, PCI procedure, Coronary Stent, Coronary Stent Initial 10:02:09 Procedure and supply charges have been captured, reviewed, submitted and are correct. 10:02:13 Procedure Complication : No complications 10:02:16 Vital chart was stopped 10:02:16 See physician's report for complete and final results. 10:02:19 Report given to [facility]. 10:02:21 Patient transfered to [facility] with Stretcher. 10:02:23 Procedure ended. 10:02:23 Full Disclosure recording stopped 10:02:31 ACC-PCI Only Patient was given prescriptions, or instructed by Augustus Del Real MD to start/continue the following medications upon discharge: Plavix 10:02:33 End room use (Document Last) Intervention Summary Intervention Notes Time ActionType Lesion and Equipment Action# Pressure Duration Attributes Used 9:58:19 Place stent R PDA ALMAS OTW 2.25 1 13 00:10 x 08 stent ([id number]) Device Usage Item Name Manufacture Quantity Catalog Number Hospital Part Current M inimal Lot# / Charge Number Stock Stock Serial# Code ACIST Syringe Acist 1 14327 170662 934535 218049 2 0 (01839) [employer] Bag Decanter Microtek 1 2001S 335188 13153 924687 5 () Medical Inc. Medline Cath Cardinal 1 [id number] 379294 37272 029396 5 Pack Health ([id number]) DIAGNOSTIC WIRE St Gunner 1 487395 661914 838557 717177 3 0 .035 260cm J wire (528309) ACIST Hand Acist 1 52039 112696 132580 836951 5 Control (57121) [employer] ACIST Manifold Acist 1 94753 418671 934890 658739 5 (27981) [employer] Inc DIAGNOSTIC Cardinal 1 ML9654 943079 08080 723457 3 0 Multipack 5Fr Health catheter set (FE0829) Tegaderm 4 x 4 3M 1 1626W 201815 479215 081959 5 (1626W) SHEATH Prelude Merit 1 WDM-3F-29-035 560435 202536 563199 5 5Fr 0.035 Medical (ZAZ-7O-15-035) MULTIPACK Cardinal 1 318629 5 Pigtail 5 Fr Health catheter MULTIPACK JL Cardinal 1 [id number] 5 4.0 5Fr Health catheter MULTIPACK 3DRC Cardinal 1 652016 5 5Fr catheter Health SHEATH 6Fr Merit 1 [id number] 869673 737367 265365 5 Prelude Medical ([id number]) INFLATOR Merit Merit 1 ZS4421 776063 697476 683918 1 5 Sirigen (IH1481) CHOICE PT Extra [place] 1 [id number] 579444 159001 498382 5 Support 182cm Scientific wire ([id number]) [place] 1 75514I 083013 218733 793905 [address] [place] IVUS Catheter (25931Z) GUIDE 6FR AR Medtronic 1 [id number] 660534 35341 565699 1 1.0 SH catheter ([id number]) ALMAS OTW 2.25 x Medtronic 1 [id number] 093500 85063 962805 5 [id number] 08 stent ([id number]) EXOSEAL 6Fr Cardinal 1 EX600 060373 299982 985203 1 0 (EX600) Health CHOICE PT Extra [place] 1 [id number] 381748 894198 303758 5 Support J 300cm Scientific guide wire ([id number]) Signature Audit [place]ich[place] Stage Time Signature Unsigned Intra-Procedure 04/11/2018 Briana Dockery 10:03:17 AM RT(R) Signatures Monitor : Santa Carrillo Signature : RT Date : Time : [address] [id number]
--- NOTE | ~2018-04-11 | HEMODYNAMI ---
PATIENT:BILL ESPINO MEDICAL RECORD: [id number] : 48 [id number] ADMISSION DATE: 04/11/18 Generatedon:04/12/201811:32 Patient name: BILL ESPINO Patient #: [id number] SSN: : 1950 Date of study: 04/12/2018 Page: Of Hemodynamic Procedure Report Patient Data Patient Demographics Procedure consent was obtained First Name: BILL Gender: Female Last Name: SRINIVAS : 1950 [facility] Initial: [place] Age: 67 year(s) Patient #: [id number] Race: Additional ID: [id number] Contact details Address: [address] State: [place] City: [place] Zip code: [address] Past Medical History Allergies Allergen Reaction Date Comments Reported Other allergy 05/03/2015 Hydrocodone, Reglan Other allergy 11/18/2016 HYDROCODONE, METOCLOPRAMIDE Other allergy 04/12/2018 Hydrocodone, metoclopramide Admission Admission Data Admission Date: 04/11/2018 Admission Time: 7:20 Admit Source: Other Room #: D.2115 Height (in.): 60.63 BSA: 1.68 (m2) Height (cm.): 154 BMI: 29.52 (kg/m2) Weight (lbs.): 154.32 Weight (kg.): 70 Procedure Procedure Types Cath Procedure PCI Procedure Coronary Atherectomy Atherectomy Coronary Initial Procedure Description Procedure Date Procedure Date: 04/12/2018 Procedure Start Time: 11:16 Procedure End Time: 11:31 Procedure Staff Name Function Augustus Del Real MD Performing Physician Vickey Choe RT Thiokol Operator [place] RT Monitor Stevan Nair RN Nurse Ayla Nieto RT Scrub Procedure Data Cath Procedure Fluoroscopy Diagnostic fluoroscopy Total fluoroscopy Time: 3.2 time: 3.2 min min Diagnostic fluoroscopy Total fluoroscopy dose: 356 dose: 356 mGy mGy Contrast Material Contrast Material Type Amount (ml) Isovue 300 39 Entry Location Entry Primary Successful Side Size Upsize Upsize Entry Closure Succes sful Closure Location (Fr) 1 (Fr) 2 (Fr) Remarks Device Remarks Femoral Right 6 Fr Exoseal artery Short Estimated blood loss: 10 ml Procedure Complications No complications Procedure Medications Medication Administration Route Dosage Oxygen etCO2 Nasal cannula 2 l/min Lidocaine 2% added to field 20 Heparin Flush Bag added to field 2 bags (1000units/500ml NS) 0.9% NaCl I.V. 100 ml/hr Versed I.V. 2 mg Fentanyl I.V. 100 mcg Heparin Bolus I.V. 5000 units Fentanyl I.V. 100 mcg Versed I.V. 1 mg Hemodynamics Rest BSA: 1.68 (m2) O2 Consumption: Estimated: 152.01 (ml/min) O2 Consumption indexed : Estimated:90.48 (ml/min/m) Heart Rate: 64 (bpm) Snapshots Pre Cath Intra NCS Post Cath Vital Signs Time Heart Resp SPO2 NIBP (mmHg) Rhythm Pain Sedation Rate (ipm) (%) Status Level (bpm) 11:00:43 58 21 98 171/77(155) NSR 0 (11) 10(A) , No pain 11:05:05 59 11 98 123/65(98) NSR 0 (11) 10(A) , No pain 11:09:21 57 26 99 108/61(101) NSR 0 (11) 10(A) , No pain 11:13:33 56 11 97 102/54(83) NSR 0 (11) 10(A) , No pain 11:17:43 59 16 95 92/54(83) NSR 0 (11) 9(A) , No pain 11:21:49 57 12 94 95/49(74) NSR 0 (11) 9(A) , No pain 11:29:46 65 17 97 125/53(92) NSR 0 (11) 10(A) , No pain Medications Time Medication Route Dose Verified Delivered Reason Notes Effectiveness by by 11:03:47 Oxygen etCO2 2 Augustus Calles used for Nasal l/min Nasima Nair employee communications specialist cannula 11:04:02 Lidocaine 2% added 20ml Augustus Coffman for local to vial Nasima Del Real MD anesthetic field 11:04:09 Heparin Flush added 2 Augustus Coffman used for Bag to bags Nasima Del Real MD procedure (1000units/500ml field NS) 11:04:21 0.9% NaCl I.V. 100 Augustus Calles Per physician ml/hr Nasima Nair RN 11:14:28 Versed I.V. 2 mg Augustus Ellerie for sedation Nasima Nair RN 11:14:32 Fentanyl I.V. 100 Augustus Buffie for sedation mcg Nasima Nair RN 11:18:22 Heparin Bolus I.V. 5000 Augustus Ellerie for verif ied units Nasima Nair RN anticoagulation with dr del real 11:20:39 Fentanyl I.V. 100 Augustus Buffie for sedation mcg Nasima Nair RN 11:20:43 Versed I.V. 1 mg Augustus Ellerie for sedation Nasima Nair RN Procedure Log Time Note 10:49:50 Patient Height : 60.63 inches 10:49:54 Patient Weight : 154.32 lbs 10:52:17 Admit Source: Other 10:52:20 Diagnostic Cath status Elective 10:52:22 Vickey Choe RT(R) sent for patient. Start room use. 10:52:23 Time tracking: Regular hours (M-F 7:00 - 5:00) 10:52:28 Plan of Care:Hemodynamics will remain stable., Cardiac rhythm will remain stable., Comfort level will be maintained., Respiratory function will remain adequate., Patient/ family verbilizes understanding of procedure., Procedure tolerated without complication., Recovers from procedure without complications.. 10:52:39 Patient received from Med II to CCL 2 Alert and oriented. Tansferred to table in Supine position. 10:52:40 Warm blankets applied, and adilia hugger turned on for patient comfort. 10:52:40 Correct patient and procedure confirmed by team. 10:52:42 Signed procedure consent form obtained from patient. 10:52:46 ECG and BP/O2 sat monitors applied to patient. 10:52:57 H&P Date Dictated: 04/11/2018 Within 30 days and on chart., H&P Addendum completed by physician on day of procedure. (MUST COMPLETE FOR ALL OUTPATIENTS). 10:52:59 Pre-procedure instructions explained to patient. 10:53:00 Family in patients room. 10:53:02 Patient NPO since Midnight. 10:53:55 Patient allergic to Other allergyHydrocodone, metoclopramide 10:54:06 Is the patient allergic to Iodine/contrast media? No. 10:54:08 Was the patient premedicated? Yes 10:54:10 Is patient on blood thinner?Yes 10:54:15 ACC The patient was administered the following blood thiners within the last 24 hours: ACCPlavix 10:59:24 Vital chart was started 10:59:25 Baseline sample Acquired. :59:28 Rhythm: sinus rhythm :59:29 Full Disclosure recording started 11:00:28 Patient diabetic? No. 11:00:32 Snore? Yes 11:00:33 Previous problem with sedation/anesthesia? No ? 11:00:42 Sleep apnea? Yes 11:00:43 Deviated septum? No 11:00:44 Opens mouth fully? Yes 11:00:45 Sticks out tongue? Yes 11:00:47 Airway obstruction? No ? 11:00:48 Dentures? No ? 11:00:51 Pre procedure: left dorsailis pedis pulse 2+ Normal; easily identifiable; not easily obliterated 11:00:53 Patient pain scale 0/10 ?. 11:01:00 IV patent on arrival in right antecubital with 0.9% NaCl at [facility]. 11:01:02 Lab results completed and on chart. 11:01:05 Left groin area was prepped with chlora-prep and draped in sterile fashion 11:01:06 Alarms reviewed by R. N. 11:01:06 Sharps counted by scrub and verified by R.N. 11:01:09 ACIST Syringe (05483) opened to sterile field. 11:01:10 Bag Decanter () opened to sterile field. 11:01:10 Medline Cath Pack ([id number]) opened to sterile field. 11:01:11 ACIST Hand Control (11046) opened to sterile field. 11:01:12 ACIST Manifold (91726) opened to sterile field. 11:01:13 Tegaderm 4 x 4 (1626W) opened to sterile field. 11:01:15 DIAGNOSTIC WIRE .035 260cm J wire (736790) opened to sterile field. 11:01:26 SHEATH Prelude 6Fr 0.035 ([id number]-[id number]) opened to sterile field. 11:01:32 INFLATOR Merit BasixCompak (WO2812) opened to sterile field. 11:03:47 Oxygen 2 l/min etCO2 Nasal cannula was administered by Stevan Nair RN; used for procedure; 11:04:02 Lidocaine 2% 20ml vial added to field was administered by Augustus Del Real MD; for local anesthetic; 11:04:09 Heparin Flush Bag (1000units/500ml NS) 2 bags added to field was administered by Augustus Del Real MD; used for procedure; 11:04:21 0.9% NaCl 100 ml/hr I.V. was administered by Stevan Nair RN; Per physician; 11:07:25 Physician paged 11::26 Physician arrived 11:07:30 Left groin site verified by team. 11:07:33 Physical assessment completed. ASA score P 2 - A patient with mild systemic disease as per Augustus Del Real MD. 11:07:39 Sedation plan: IV Moderate Sedation Medication:Versed, Fentanyl 11:13:34 Physician arrived 11::35 --------ALL STOP TIME OUT------ 11:13:35 Final Timeout: patient, procedure, and site verified with staff and physician. All members of the team are in agreement. 11:14:28 Versed 2 mg I.V. was administered by Stevan Nair RN; for sedation; 11:14:32 Fentanyl 100 mcg I.V. was administered by Stevan Nair RN; for sedation; 11:15:47 Use device set Femoral Dx 11:15:50 Procedure started. 11:16:10 GUIDE 6FR XBLAD 4.0 catheter ([id number]) opened to sterile field. 11:16:14 INFLATOR Merit BasixCompak (LF7412) opened to sterile field. 11:16:15 ACIST Syringe (11679) opened to sterile field. 11:16:16 Bag Decanter (2002) opened to sterile field. 11:16:16 Medline Cath Pack ([id number]) opened to sterile field. 11:16:17 DIAGNOSTIC WIRE .035 260cm J wire (377364) opened to sterile field. 11:16:26 ACIST Hand Control (69170) opened to sterile field. 11:16:26 ACIST Manifold (62583) opened to sterile field. 11:16:29 Tegaderm 4 x 4 (1626W) opened to sterile field. 11:16:31 PERCUTANEOUS ENTRY 19GA needle opened to sterile field. 11:16:50 SHEATH 6Fr Prelude ([id number]) opened to sterile field. 11:16:56 Local anesthetic to left femerol artery with Lidocaine 2% by Augustus Del Real MD.INITIAL ACCESS ONLY 11:17:07 A 6 Fr Short sheath was inserted into the Right Femoral artery 11:17:30 Proceeding to intervention. 11:17:46 Study PCI Site: [place] mLAD has 80% stenosis. 11:17:54 6 Fr XBLAD4 guide catheter was inserted over the wire 11:18:04 CHOICE PT Extra Support 182cm wire ([id number]) opened to sterile field. 11:18:11 choice ex wire advanced. 11:18:22 Heparin Bolus 5000 units I.V. was administered by Stevan Nair RN; for anticoagulation; verified with dr del real 11:18:49 Wire advanced across lesion. 11:20:35 Laser pass to mLAD with Fluence of 80 and Rate of 40. 11:20:39 Fentanyl 100 mcg I.V. was administered by Stevan Nair RN; for sedation; 11:20:43 Versed 1 mg I.V. was administered by Stevan Nair RN; for sedation; 11:21:18 LASER ELCA 0.9 Rx atherectomy catheter (533440) opened to sterile field. 11:22:29 Laser catheter removed. 11:23:51 Sheath removed intact; hemostasis achieved with Exoseal to the Right Femoral artery. 11:24:00 EXOSEAL 6Fr (EX600) opened to sterile field. 11:24:05 Procedure ended.(Physican Out) 11:24:53 Fluoroscopy time 03.20 minutes. 11:24:59 Flurop Dose total: 356 11:24:59 Fluoroscopy dose: 356 mGy 11:25:11 Contrast amount:Isovue 300 39ml. 11:25:12 Sharps counted by scrub and verified by R.N. 11:25:15 Insertion/operative site no bleeding no hematoma. 11:26:19 Post-op/insertion site Left Femoral artery dressed using a 4 x 4 and Tegaderm. 11:26:24 Post left femerol artery:stable 11:26:27 Post-procedure physical assessment completed. ASA score P 2 - A patient with mild systemic disease as per Augustus Del Real MD. 11:26:30 Post procedure rhythm: unchanged. 11:26:33 Estimated blood loss: 10 ml 11::35 Post procedure instruction explained to patient.Patient verbalizes understanding. 11:28:14 Patient needs reinforcement of post procedure teaching. 11:28:26 Procedure type changed to Cath procedure, PCI procedure, Coronary Atherectomy, Atherectomy Coronary Initial 11::28 Procedure and supply charges have been captured, reviewed, submitted and are correct. 11:30:00 Laser total pulses delivered: 1569 11:30:09 Laser total treatment time: 0 minutes 39 seconds 11:30:50 Procedure Complication : No complications 11:30:53 Vital chart was stopped 11::54 See physician's report for complete and final results. 11:31:38 Report given to Pre/Post Procedure Room. 11:31:43 Patient transfered to Pre/Post Procedure Room with Stretcher. 11:31:45 Procedure ended. 11:31:45 Full Disclosure recording stopped 11:31:47 End room use (Document Last) Device Usage Item Name Manufacture Quantity Catalog Number Hospital Part Current Minimal Lot# / Charge Number Stock Stock Serial# Code ACIST Syringe Acist 2 11134 427293 460514 050836 20 (98864) [employer] Bag Decanter Microtek 2 2001S 935294 01492 095253 5 (2001S) Medical Inc. Medline Cath Cardinal 2 [id number] 131750 74785 605507 5 [facility] ([id number]) ACIST Hand Acist 2 74895 843481 779313 217735 5 Control (93121) [employer] ACIST Manifold Acist 2 47378 664981 472368 699264 5 (44267) [employer] Tegaderm 4 x 4 3M 2 1626W 992297 515764 426948 5 (1626W) DIAGNOSTIC WIRE St Gunner 2 402352 374839 985308 139710 30 .035 260cm J wire (645750) SHEATH Prelude Merit 1 [id number] 402091 8924498 755309 5 6Fr 0.035 Medical ([id number]) INFLATOR Merit Merit 2 FQ1435 332390 503115 277408 15 [facility] ([id number]) GUIDE 6FR XBLAD Cardinal 1 [id number] 840308 395082 592911 3 4.0 catheter Health ([id number]) PERCUTANEOUS [employer] 1 J70672 540683 294879 5 ENTRY 19GA needle SHEATH 6Fr Merit 1 [id number] 999005 214607 644473 5 Prelude Medical ([id number]) CHOICE PT Extra [place] 1 [id number] 304161 607642 279058 5 Support 182cm Scientific wire ([id number]) LASER ELCA 0.9 Roshni 1 110-004 378403 050180 084919 5 Rx atherectomy Healthcare catheter (348411) (531562) EXOSEAL 6Fr Cardinal 1 EX600 056069 977145 681140 10 (EX600) Health Signature Audit [place] Stage Time Signature Unsigned Intra-Procedure 04/12/2018 Santa Carrillo 11:32:12 AM RT(R) Signatures Monitor : Santa Carrillo Signature : RT Date : Time : [address] [address] [place] [address]
[2018-04-11] MEDS ORDERED: RANEXA500 MG PO (07:34)
[2018-04-11 07:46] VITALS: BP 177/89; BMI 28.2
[2018-04-11 07:57] LABS: BASOPHILS 0.1 % (0-2); EOSINOPHILS 2.4 % (0-7); HEMATOCRIT 42.5 % (36.0-48.0); HEMOGLOBIN 14.6 g/dL (12-16); IMMATURE GRANULOCYTES 0.3 % (0-5); LYMPHOCYTES 22.4 % (15-50); MCH 31.6 pg (26.0-34.0); MCHC 34.4 g/dL (31.0-37.0); MEAN PLATELET VOLUME 9.8 fL (7.4-10.4); MONOCYTES 9.1 % (2-11); NEUTROPHILS 65.7 % (40-80); PLATELET COUNT 183 10x3/uL (130-400); RBC 4.62 10x6/uL (4.00-5.40); RDW 13.4 % (11.5-14.5); WBC 7.1 10x3/uL (4.8-10.8)
[2018-04-11 08:06] LABS: ANION GAP 9.3 mmol/L (8-16); CALCIUM 8.4 mg/dL (8.5-10.1); CARBON DIOXIDE 27.3 mmol/L (21.0-32.0); CREATININE - SERUM 0.9 mg/dL (0.6-1.3); POTASSIUM - SERUM 3.6 mmol/L (3.5-5.1)
[2018-04-11 10:46] VITALS: BP 134/84; Ht 154.9 cm; Wt 70.9 kg
[2018-04-11 11:18] VITALS: BP 142/61
[2018-04-11 14:57] VITALS: BP 113/54
[2018-04-11 21:28] VITALS: BP 131/58
[2018-04-12 05:29] VITALS: BP 121/57
[2018-04-12 07:43] VITALS: BP 140/59
[2018-04-12 11:24] VITALS: BP 139/70
== END 2018-04-12 15:30 | disposition home or self-care (01) ==
LOC: D.CATH 07:20 → D.M2 07:20 → D.CATH 09:30 → D.M2 10:31 → D.CATH 04-12 15:30
PROVIDERS: Internal Medicine Interventional Cardiology
DX: I25.110 Atherosclerotic heart disease of native coronary artery with unstable angina pectoris (principal); T82.855A Stenosis of coronary artery stent, initial encounter; Z01.812 Encounter for preprocedural laboratory examination
CPT/HCPCS: 92978; 93458; 92924; C9600

== ENCOUNTER → 2018-11-30 17:12 | Outpatient (CLI) | payer MEDICARE ==
[2018-04-11 10:46] VITALS: BMI 29.5
[~2018-11-30 17:12] MED LIST changes: +RANEXA500 MG PO
[2018-11-30 19:08] LABS: LDL-HDL RATIO 2.4 ratio (1.5-3.5)
== END | disposition home or self-care (01) ==
LOC: D.LABREF 17:12
PROVIDERS: ATTEND Nurse Practitioner Adult Health
DX: I25.10 Atherosclerotic heart disease of native coronary artery without angina pectoris (principal); E78.5 Hyperlipidemia, unspecified

== ENCOUNTER 2019-06-30 09:20 | Outpatient (CLI) | payer MEDICARE, MEDICAID ==
[~2019-06-30] VITALS: Ht 154.9 cm; Wt 68.2 kg
--- NOTE | ~2019-06-30 | HEMODYNAMI ---
PATIENT:BILL ESPINO MEDICAL RECORD: [id number] : 48 LOCATION:[facility] ADMISSION DATE: 06/30/19 Generatedon:06/30/201913:24 Patient name: BILL ESPINO Patient #: [id number] SSN: [id number] : 1950 Date of study: 06/30/2019 Page: Of Hemodynamic Procedure Report Patient Data Patient Demographics Procedure consent was obtained First Name: BILL Gender: Female Last Name: SRINIVAS : 1950 [facility] Initial: [place] Age: 68 year(s) Patient #: [id number] Race: SSN: [id number] Additional ID: [id number] Contact details Address: [facility] [address] State: [place] City: [place] Zip code: [address] Past Medical History Allergies Allergen Reaction Date Comments Reported Other allergy 05/03/2015 Hydrocodone, Reglan Other allergy 11/18/2016 HYDROCODONE, METOCLOPRAMIDE Other allergy 04/12/2018 Hydrocodone, metoclopramide Admission Admission Data Admission Date: 06/30/2019 Admission Time: 9:20 Arrival Date: 06/30/2019 Arrival Time: 0:00 Admit Source: Other Insurance Payor: Medicaid, Medicare [facility] #: [id number] Height (in.): 62 BSA: 1.71 (m2) Height (cm.): 157.48 BMI: 27.98 (kg/m2) Weight (lbs.): 153 Weight (kg.): 69.4 Lab Results Lab Result Date: 06/30/2019 Lab Result Time: 0:00 Biochemistry Name Units Result Min Max BUN mg/dl 19 --(----)*- 7 18 Creatinine mg/dl 0.8 --(-*--)-- 0.6 1.3 CBC Name Units Result Min Max Hemoglobin g/dl 14.3 --(*---)-- 13.5 17.5 Procedure Procedure Types Cath Procedure Diagnostic Procedure LHC LHC w/Coronaries Procedure Description Procedure Date Procedure Date: 06/30/2019 Procedure Start Time: 13:10 Procedure End Time: 13:23 Procedure Staff Name Function Augustus Del Real MD Performing Physician Binu Marcos RT Monitor Ling Verdin RN Nurse [place] RT Scrub Indication Chest discomfort Chest pain Procedure Data Cath Procedure Fluoroscopy Diagnostic fluoroscopy Total fluoroscopy Time: 0.8 time: 0.8 min min Diagnostic fluoroscopy Total fluoroscopy dose: 402 dose: 402 mGy mGy Contrast Material Contrast Material Type Amount (ml) Isovue 300 57 Entry Location Entry Primary Successful Side Size Upsize Upsize Entry Closure Succes sful Closure Location (Fr) 1 (Fr) 2 (Fr) Remarks Device Remarks Femoral Right 5 Fr Exoseal artery Estimated blood loss: 10 ml Diagnostic catheters Device Type Used For End Catheter Placement MULTIPACK Pigtail 5 Fr Procedure catheter MULTIPACK JL 4.0 5Fr Procedure catheter MULTIPACK 3DRC 5Fr Procedure catheter Procedure Complications No complications Procedure Medications Medication Administration Route Dosage 0.9% NaCl I.V. 100 ml/hr Oxygen etCO2 Nasal cannula 2 l/min Lidocaine 2% added to field 20 Heparin Flush Bag added to field 2 bags (1000units/500ml NS) Fentanyl I.V. 50 mcg Fentanyl I.V. 50 mcg Hemodynamics Rest BSA: 1.71 (m2) HGB: 14.3 (g/dl) O2 Consumption: Estimated: 152.28 (ml/min) O2 Co nsumption indexed: Estimated:89.05 (ml/min/m) Heart Rate: 61 (bpm) Snapshots Pre Cath Intra NCS Post Cath Vital Signs Time Heart Resp SPO2 etCO2 NIBP (mmHg) Rhythm Pain Sedation Rate (ipm) (%) (mmHg) Status Level (bpm) 13:00:26 80 20 97 17 158/71(123) NSR 0 (11) 10(A) , No pain 13:04:50 60 25 98 21.2 132/65(107) NSR 0 (11) 10(A) , No pain 13:09:06 67 16 97 31.8 117/58(82) NSR 0 (11) 10(A) , No pain 13:13:14 59 13 96 37.9 111/64(95) NSR 0 (11) 10(A) , No pain 13:17:12 62 25 96 37.1 108/70(104) NSR 0 (11) 10(A) , No pain 13:21:15 62 21 97 38.6 112/65(103) NSR 0 (11) 10(A) , No pain Medications Time Medication Route Dose Verified Delivered Reason Notes Eff ectiveness by by 12:59:57 0.9% NaCl I.V. 100 Augustus Ling used for ml/hr Nasima Verdin mri special procedures technologist 13:00:03 Oxygen etCO2 2 Augustus Ling used for Nasal l/min Nasima Verdin procedure cannula RN 13:00:08 Lidocaine 2% added 20ml Augustus Augustus for local to vial Nasima Del Real MD anesthetic field 13:00:12 Heparin Flush added 2 Augustus Augustus used for Bag to bags Nasima Del Real MD procedure (1000units/500ml field NS) 13:09:59 Fentanyl I.V. 50 Augustus Ling for mcg Nasima Verdin sedation RN 13:14:01 Fentanyl I.V. 50 Augustus Ling for mcg Nasima Verdin sedation intelligence manager Log Time Note 12:30:39 Binu Marcos RT(R) sent for patient. Start room use. 12:44:15 Patient Height : 62 inches 12:44:18 Patient Weight : 153 lbs 12:45:56 Admit Source: Other 12:46:35 Arrival Date: 06/30/2019 12:00:00 AM 12:47:20 Insurance Payor : Medicare, Medicaid 12:47:56 Lab Result : Hemoglobin 14.3 g/dl 12:47:56 Lab Result : Creatinine 0.8 mg/dl 12:47:56 Lab Result : BUN 19 mg/dl 12:49:11 Indication : Chest discomfort 12:49:12 Indication : Chest pain 12:49:36 Procedure Status Elective Heart Cath (OP). 12:54:15 Patient received from Pre/Post Procedure Room to CCL 1 Alert and oriented. Tansferred to table in Supine position. 12:55:26 Signed procedure consent form obtained from patient. 12:55:27 Warm blankets applied, and adilia hugger turned on for patient comfort. 12:55:27 Correct patient and procedure confirmed by team. 12:55:28 ECG and BP/O2 sat monitors applied to patient. 12:59:13 Vital chart was started 12:59:57 0.9% NaCl 100 ml/hr I.V. was administered by Ling Verdin RN; used for procedure; Verbal order read back and verified. 13:00:03 Oxygen 2 l/min etCO2 Nasal cannula was administered by Ling Verdin RN; used for procedure; Verbal order read back and verified. 13:00:08 Lidocaine 2% 20ml vial added to field was administered by Augustus Del Real MD; for local anesthetic; Verbal order read back and verified. 13:00:12 Heparin Flush Bag (1000units/500ml NS) 2 bags added to field was administered by Augustus Del Real MD; used for procedure; Verbal order read back and verified. 13:02:18 Time tracking: Regular hours (M-F 7:00 - 5:00) 13:02:22 Plan of Care:Hemodynamics will remain stable., Cardiac rhythm will remain stable., Comfort level will be maintained., Respiratory function will remain adequate., Patient/ family verbilizes understanding of procedure., Procedure tolerated without complication., Recovers from procedure without complications.. 13:05:28 Baseline sample Acquired. 13:05:32 Rhythm: sinus rhythm 13:05:33 Full Disclosure recording started 13:05:43 H&P Date Dictated: 06/27/2019 Within 30 days and on chart., H&P Addendum completed by physician on day of procedure. (MUST COMPLETE FOR ALL OUTPATIENTS). 13:05:53 Pre-procedure instructions explained to patient. 13:05:54 Pre-op teaching completed and patient verbalized understanding. 13:05:56 Family in patients room. 13:05:57 Patient NPO since Midnight. 13:05:59 Is the patient allergic to Iodine/contrast media? No. 13:06:01 Is patient on blood thinner?Yes 13:06:04 ACC The patient was administered the following blood thiners within the last 24 hours: ACCPlavix 13:06:09 Patient diabetic? No. 13:06:11 Previous problem with sedation/anesthesia? No ? 13:06:12 Snore? Yes 13:06:13 Sleep apnea? Yes 13:06:14 Deviated septum? No 13:06:15 Opens mouth fully? Yes 13:06:16 Sticks out tongue? Yes 13:06:17 Airway obstruction? No ? 13:06:25 Dentures? Yes OUT 13:06:44 Pre procedure: right dorsailis pedis pulse 1+ Palpable, but thready & weak; easily obliterated 13:06:46 Patient pain scale 0/10 ?. 13:06:50 IV patent on arrival in left forearm with 0.9% NaCl at [facility]. 13:06:53 Lab results completed and on chart. 13:07:08 Right groin area was prepped with chlora-prep and draped in sterile fashion 13:07:09 Alarms reviewed by R. N. 13:07:09 Sharps counted by scrub and verified by R.N. 13:07:37 Final Timeout: patient, procedure, and site verified with staff and physician. All members of the team are in agreement. 13:07:37 --------ALL STOP TIME OUT------ 13:07:37 Physician arrived 13:07:39 Right groin site verified by team. 13:07:44 Fire Safety Assessment: A--An alcohol-based skin anteseptic being used preoperatively., C--Open oxygen or nitrous oxide is being used., D--An ESU, laser, or fiber-optic light is being used. 13:07:47 Physical assessment completed. ASA score P 2 - A patient with mild systemic disease as per Augustus Del Real MD. 13:07:57 2) 60-89 Mildly reduced kidney function, and other findings (as for stage 1) point to kidney disease. 13:08:05 Maximum allowable contrast dose (3.7 X eGFR X 0.75)? ml. 13:08:11 Sedation plan: IV Moderate Sedation Medication:Versed, Fentanyl 13:09:29 Risk of Mortality: 0.1 13:09:32 Risk of blood transfusion: 0.6 13:09:34 Risk of KAZ: 0.9 13:09:59 Fentanyl 50 mcg I.V. was administered by Ling Verdin RN; for sedation; Verbal order read back and verified. 13:10:17 Procedure started. 13:10:35 Local anesthetic to right femoral artery with Lidocaine 2% by Augustus Del Real MD.INITIAL ACCESS ONLY 13:10:42 A 5 Fr sheath was inserted into the Right Femoral artery 13:10:45 Use device set Femoral Dx 13:10:47 ACIST Syringe (45428) opened to sterile field. 13:10:48 Bag Decanter (2002S) opened to sterile field. 13:10:51 ACIST Hand Control (46930) opened to sterile field. 13:10:51 ACIST Manifold (40301) opened to sterile field. 13:10:52 Tegaderm 4 x 4 (1626W) opened to sterile field. 13:10:54 Medline Cath Pack ([id number]) opened to sterile field. 13:10:55 DIAGNOSTIC Multipack 5Fr catheter set (RM4173) opened to sterile field. 13:10:56 SHEATH 5FR Pinon (VPS108) opened to sterile field. 13:10:56 EMERALD Guide Wire (902-295) opened to sterile field. 13:11:03 A MULTIPACK Pigtail 5 Fr catheter was advanced over the wire and used for Procedure. 13:11:09 LV gram done using ROMERO 13:11:13 Injector settings: Ml/sec: 10, Volume: 20, 13:11:18 EF : 50 % 13:11:24 A MULTIPACK JL 4.0 5Fr catheter was advanced over the wire and used for Procedure. 13:12:14 LCA angiography performed. 13:14:01 Fentanyl 50 mcg I.V. was administered by Ling Verdin RN; for sedation; Verbal order read back and verified. 13:14:31 Catheter removed. 13:14:37 A MULTIPACK 3DRC 5Fr catheter was advanced over the wire and used for Procedure. 13:14:42 RCA angiography performed. 13:14:43 ACCDominant side:Right 13:14:45 Catheter removed. 13:14:55 EXOSEAL 5Fr (EX500) opened to sterile field. 13:15:15 Sheath removed intact; hemostasis achieved with Exoseal to the Right Femoral artery. 13:15:17 Procedure ended.(Physican Out) 13:16:17 Fluoroscopy time 00.80 minutes. 13:16:20 Fluoroscopy dose: 402 mGy 13:16:20 Flurop Dose total: 402 13:16:28 Dose Area Product 00096 mGy/cm. 13:16:50 Contrast amount:Isovue 300 57ml. 13:16:52 Sharps counted by scrub and verified by R.N. 13:16:55 Maximum allowable dose exceeded? No. 13:16:57 Insertion/operative site no bleeding no hematoma. 13:17:00 Post-op/insertion site Right Femoral artery dressed using a 4 x 4 and Tegaderm. 13:17:01 Post Procedure Pulses reassessed and unchanged 13:17:04 Post-procedure physical assessment completed. ASA score P 2 - A patient with mild systemic disease as per Augustus Del Real MD. 13:17:06 Post procedure rhythm: unchanged. 13:17:08 Estimated blood loss: 10 ml 13:17:10 Post procedure instruction explained to patient.Patient verbalizes understanding. 13:17:11 Patient needs reinforcement of post procedure teaching. 13:17:16 Procedure and supply charges have been captured, reviewed, submitted and are correct. 13:17:19 Procedure Complication : No complications 13:17:[address] [facility] Findings: mild to moderate CAD (<70%) 13:19:37 Operative report dictated upon procedure completion. 13:19:37 See physician's report for complete and final results. 13:22:48 Vital chart was stopped 13:23:01 Report given to Pre/Post Procedure Room. 13:23:04 Patient transfered to Pre/Post Procedure Room with Stretcher. 13:23:07 Procedure ended. 13:23:07 Full Disclosure recording stopped 13:23:57 End room use (Document Last) Device Usage Item Name Manufacture Quantity Catalog Hospital Part Current Minimal L ot# / Number Charge Number Stock Stock Serial# Code ACIST Acist 1 20904 528702 [id number] [id number] 20 Syringe Medical (87759) Systems Inc Bag Microtek 1 220146 51355 980373 5 Decanter Medical Inc. () ACIST Hand Acist 1 89233 897310 840645 975057 5 Control Medical (67881) Systems Inc ACIST Acist 1 53384 777392 248667 446433 5 Manifold Medical (42749) Systems Inc Tegaderm 4 3M 1 1626W 346938 249302 435488 5 x 4 (1626W) Medline Medline 1 [id number] 190079 91870 159056 5 Cath Pack (BIOS11284) DIAGNOSTIC Cardinal 1 MV3677 924880 13169 881414 30 [facility] 5Fr catheter set (IS6195) SHEATH 5FR Terumo 1 ERH177 237103 091313 822018 5 Pinon (YGY035) EMERALD Cardinal 1 651-758 300812 570277 325802 5 Guide Wire Health (842-228) MULTIPACK Cardinal 1 314139 5 Pigtail 5 Health Fr catheter MULTIPACK Cardinal 1 575203 5 JL 4.0 5Fr Health catheter MULTIPACK Cardinal 1 656583 5 3DRC 5Fr Health catheter EXOSEAL 5Fr Cardinal 1 EX500 216237 481721 229858 10 (EX500) Health Signature Audit Douglas Stage Time Signature Unsigned Intra-Procedure 06/30/2019 Binu Marcos 1:23:23 PM RT(R) Intra-Procedure 06/30/2019 Ling Verdin 1:23:51 PM RN Intra-Procedure 06/30/2019 Augustus Del Real 1:24:15 PM Signatures Performing Physician : Signature : Augustus Del Real MD Date : Time : Monitor : Binu Marcos RT Signature : Date : Time : Nurse : Ling Verdin RN Signature : Date : Time : [address] [place] [address]
[2019-06-30] MEDS ORDERED: TOPROL XL100 MG PO (09:46)
[2019-06-30] MEDS ORDERED: PROZAC20 MG PO (09:47)
[2019-06-30] MEDS ORDERED: NORVASC5 MG PO (09:48)
[2019-06-30 10:01] VITALS: BP 159/58; Ht 154.9 cm; Wt 68.2 kg
[2019-06-30 10:18] LABS: HEMATOCRIT 41.8 % (36.0-48.0); HEMOGLOBIN 14.3 g/dL (12-16); LYMPHOCYTES 30.4 % (15-50); MCH 31.3 pg (26.0-34.0); MCHC 34.2 g/dL (31.0-37.0); MCV 91.5 fL (80.0-100.0); MEAN PLATELET VOLUME 8.6 fL (7.4-10.4); NEUTROPHILS 59.6 % (40-80); PLATELET COUNT 193 10x3/uL (130-400); RBC 4.57 10x6/uL (4.00-5.40); WBC 6.5 10x3/uL (4.8-10.8)
[2019-06-30 10:34] LABS: ALT (SGPT) 29 U/L (10-68); CALC OSMOLALITY 282 mosm/kg (275-300); CARBON DIOXIDE 25.8 mmol/L (21.0-32.0); CHLORIDE - SERUM 105 mmol/L (98-107); CHOL - HDL RATIO 4.3 ratio (2.3-4.1); CHOLESTEROL, TOTAL 217 mg/dL (0-200); CREATININE - SERUM 0.8 mg/dL (0.6-1.3); GLUCOSE 105 mg/dL (74-106); HDL CHOLESTEROL 51 mg/dL (32-96); LDL CHOLESTEROL 145 mg/dL (0-100); LDL-HDL RATIO 2.8 ratio (1.5-3.5); POTASSIUM - SERUM 4.2 mmol/L (3.5-5.1); SODIUM 141 mmol/L (136-145); TRIGLYCERIDE 109 mg/dL (30-200); UREA NITROGEN 19 mg/dL (7-18); eGFR NON AFRICAN AMERICAN 75 mL/min (90-120)
--- NOTE | 2019-06-30 13:30 | NUR ---
PATIENT ARRIVED TO ROOM 4, PLACED ON CM. VSS. RIGHT GROIN DRESSING IS CDI, NO S/S OF BLEEDING OR HEMATOMA.
--- NOTE | 2019-06-30 13:45 | NUR ---
PATIENT RESTING, FAMILY AT BEDSIDE. VSS ON 2L NC. NO C/O PAIN, NUMBNESS, OR TINGLING. RIGHT GROIN DRESSING IS CDI, NO S/S OF BLEEDING OR HEMATOMA.
--- NOTE | 2019-06-30 14:15 | NUR ---
HEAD OF BED ELEVATED TO 45 DEGREES. RIGHT GROIN DRESSING IS CDI, NO S/S OF BLEEDING OR HEMATOMA. NO C/O PAIN,NUMBNESS, OR TINGLING. PATIENT GIVEN SODA AND SANDWICH PER REQUEST, NO N/V. FAMILY PRESENT AT BEDSIDE.
--- NOTE | 2019-06-30 14:45 | NUR ---
PATIENT AWAKE, HEAD OF BED AT 90 DEGREES. RIGHT GROIN DRESSING IS CDI, NO S/S OF BLEEDING OR HEMATOMA. VSS ON ROOM AIR. TOLERATING PO FLUIDS AND FOOD, NO N/V. NO C/O PAIN, NUMBNESS, OR TINGLING. WRITTEN AND VERBAL DISCHARGE INSTRUCTIONS GIVEN TO PATIENT AND FAMILY, BOTH VOICE UNDERSTANDING. IV REMOVED, PATIENT DISCONNECTED FROM MONITORS TO GET DRESSED.
--- NOTE | 2019-06-30 15:05 | NUR ---
PHYSICIAN UPDATED FAMILY AND PATIENT. PATIENT VOIDED WITHOUT DIFFICULTY. PATIENT TRANSPORTED VIA WHEELCHAIR TO CAR WITH FAMILY DRIVING, ALL BELONGINGS WITH PATIENT.
--- NOTE | 2019-07-03 09:28 | OP ---
PATIENT NAME: BILL ESPINO MEDICAL RECORD: [id number] :[birth year] LOCATION:D.CAT ADMISSION DATE: SURGEON: MATT STEWART MD DATE OF OPERATION: 06/30/2019 PROCEDURES: 1. Left heart catheterization. 2. Selective coronary angiography. 3. Left ventriculogram. INDICATION: Angina and coronary artery disease. PROCEDURE PERFORMED: After informed consent was obtained and after detailed description of risks, benefits as well as alternative therapies, the patient elected to proceed with angiogram and heart catheterization. The right femoral area was prepped and draped in normal sterile fashion. The right femoral artery was cannulated via modified Seldinger technique with placement of 5-Guyanese sheath. All catheters exchanged through this sheath. FINDINGS: Left ventriculogram was performed in standard 30-degree ROMERO view, reveals good cardiac wall motion, ejection fraction in the 50% range. SELECTIVE CORONARY ANGIOGRAPHY: 1. Left main is with no significant angiographic disease. 2. Left anterior descending has previously placed stent that is widely patent with no significant restenosis. No disease elsewise throughout the LAD or its branches. 3. The left circumflex has mild irregularities, but no flow-limiting stenosis. 4. The right coronary has previously placed stents, these are widely patent with no restenosis. No disease elsewise throughout the RCA or its branches. OVERALL IMPRESSION: Wide patency of the previously placed stents in the LAD and RCA, no disease elsewise. Continue medical management of the coronary artery disease and cardiac risk factors. TRANSINT:[id number] Voice Confirmation ID: [id number] DOCUMENT ID: [id number] MATT STEWART MD at 0928 CC: [id number] DICTATION DATE: 06/30/19 1320 ARCHIVES TECHNICIAN: 06/30/19 1330 DEP CLI 06/30/19 [place] [address]
== END 2019-06-30 15:06 ==
LOC: D.CATH 09:20
PROVIDERS: ATTEND Internal Medicine Interventional Cardiology
DX: I25.110 Atherosclerotic heart disease of native coronary artery with unstable angina pectoris (principal)

== ENCOUNTER → 2019-10-25 17:48 | Outpatient (CLI) | payer MEDICARE, MEDICAID ==
[2019-06-30 10:01] VITALS: BMI 28.4
[~2019-10-25 17:48] MED LIST changes: +NORVASC5 MG PO; +PROZAC20 MG PO; +TOPROL XL100 MG PO
[2019-10-25 18:51] LABS: CHOL - HDL RATIO 2.6 ratio (2.3-4.1); LDL-HDL RATIO 1.3 ratio (1.5-3.5)
== END | disposition home or self-care (01) ==
LOC: D.LABREF 17:48
PROVIDERS: ATTEND Internal Medicine Interventional Cardiology
DX: E78.5 Hyperlipidemia, unspecified (principal)